=== PATIENT | female | born 1950 | race Caucasian/White ===

== ENCOUNTER → 2017-01-18 | Outpatient (CLI) | payer MEDICARE, BC | END | disposition home or self-care (01) | LOC: HKI 09:29 | PROVIDERS: ATTEND Orthopaedic Surgery | DX: M25.551 Pain in right hip (principal); M16.11 Unilateral primary osteoarthritis, right hip | CPT/HCPCS: G0463 ==

== ENCOUNTER 2017-01-26 06:04 | Inpatient (IN) | payer MEDICARE, BC ==
[~2017-01-26] VITALS: Ht 157.5 cm; Wt 87.0 kg
[2017-01-26] VITALS (33 sets, daily range): BP systolic 83–155; BP diastolic 53–97; PULSE 76–92; RESP 7–24; Ht 157.5 cm; Wt 87.0 kg
[~2017-01-26 06:04] MED LIST: CEFAZOLIN 2GM/50 ML (PMX) 50 ML X1 BEFORE INCISION IVPB ONE; CELECOXIB 400 MG PO X1 DOSE PO ONE; LACTATED RINGER'S 1,000 ML IV SCH; PREGABALIN 300 MG PO X1 PO ONE; TRANEXAMIC ACID 820 MG in SOD CHLORIDE 0.9% 91.8 ML IV ONE; oxyCODONE (CR) 10 MG TAB [oxyCONTIN] X1 DOSE PO ONE; traMADOL 50 MG TAB X 1 DOSE PO ONE
[2017-01-26] MEDS ORDERED: MIDAZOLAM 1 MG/ML 2 ML INJ ONE (06:54)
[2017-01-26] MEDS ORDERED: PROPOFOL 100 ML ONE (06:54)
[2017-01-26] MEDS ORDERED: FENTAnyl 50 MCG/ML VIAL ONE (06:54)
[2017-01-26] MEDS ORDERED: METOCLOPRAMIDE 10 MG INJ ONE (06:55)
[2017-01-26] MEDS ORDERED: ONDANSETRON 4 MG INJ ONE (06:55)
[2017-01-26] MEDS ORDERED: TRANEXAMIC ACID 820 MG in SOD CHLORIDE 0.9% 100 ML IVPB ONE (07:00)
[2017-01-26] MEDS ORDERED: EXPAREL NOTE (BUPIVICAINE LIPOSOMAL) XX SCH (07:00)
[2017-01-26] MEDS ORDERED: BUPIVACAINE LIPOSOME/PF 266 MG/20 ML VIAL INFIL ONE (07:00)
[2017-01-26] MEDS ORDERED: PAIN COCKTAIL-CEFUROXIME IRR ONE ×7 (07:00)
--- NOTE | 2017-01-26 07:07 | HPN ---
Date/Time of Note Date/Time of Note DATE: 01/26/17 TIME: 07:07 Interval H&P Admission Note Pt. seen H&P reviewed: No system changes No changes from H&P on 01/18/17 by LORI Patterson MD Jan 26, 2017 07:07
[2017-01-26] MEDS ORDERED: ESCI20TA38 PO (07:11)
[2017-01-26] MEDS ORDERED: AMLO-147 PO (07:11)
[2017-01-26] MEDS ORDERED: LEVO137T3 PO (07:11)
[2017-01-26] MEDS ORDERED: PRAV20TA63 PO (07:11)
[2017-01-26] MEDS ORDERED: FENO200 PO (07:11)
[2017-01-26] MEDS ORDERED: ASPI-664 PO (07:11)
[2017-01-26] MEDS ORDERED: BETA1TAB12 PO (07:14)
[2017-01-26] MEDS ORDERED: CHOL100062 PO (07:14)
[2017-01-26] MEDS ORDERED: UBID50TA PO (07:14)
[2017-01-26] MEDS ORDERED: CALC-68 PO (07:14)
[2017-01-26] MEDS ORDERED: DEXAMETHASONE 4 MG/ML 1 ML INJ ONE (07:17)
[2017-01-26] MEDS ORDERED: CEFAZOLIN 1 GM INJ ONE (07:27)
[2017-01-26] MEDS ORDERED: EPHEDrine SULFATE 50 MG/5 ML SYG ONE (07:48)
[2017-01-26] MEDS ORDERED: SODIUM CL BACTERIOSTATIC 30 ML INJ ONE (07:55)
[2017-01-26] MEDS ORDERED: VANCOMYCIN 1 GM INJ ONE (07:56)
[2017-01-26] MEDS ORDERED: POLYMYXIN B 500000 UNIT INJ ONE (07:56)
[2017-01-26] MEDS ORDERED: ONDANSETRON 4 MG INJ IV PRN ×2 (08:00→14:00)
[2017-01-26] MEDS ORDERED: LABETALOL HCL 20MG INJ IV PRN (08:00)
[2017-01-26] MEDS ORDERED: METOCLOPRAMIDE 10 MG INJ IV PRN (08:00)
[2017-01-26] MEDS ORDERED: MEPERIDINE 25 MG INJ IV PRN (08:00)
[2017-01-26] MEDS ORDERED: hydrALAzine 20 MG INJ IV PRN (08:00)
[2017-01-26] MEDS ORDERED: DIPHENHYDRAMINE 50 MG INJ IV PRN (08:00)
[2017-01-26] MEDS ORDERED: HYDROmorphONE (0.2 MG/ML) 10ML SYG IV PRN ×3 (08:00)
[2017-01-26] MEDS ORDERED: BACITRACIN 50000 UNITS INJ IRR ONE (08:18)
[2017-01-26] MEDS ORDERED: PROPOFOL 20 ML ONE (08:22)
[2017-01-26] MEDS ORDERED: BACITRACIN/POLYMYXIN 28.35 GM OINT TOP ONE (09:24)
[2017-01-26] MEDS: LACTATED RINGER'S 1,000 ML IV SCH ×3 (09:59→23:52)
[2017-01-26] MEDS ORDERED: BISACODYL 10 MG SUPP PR PRN (10:00)
[2017-01-26] MEDS ORDERED: NA PHOSPHATE/BIPHOS 133 ML ENEMA PR PRN (10:00)
[2017-01-26] MEDS ORDERED: ASPIRIN (EC) 325 MG TAB PO ONE (10:00)
[2017-01-26] MEDS ORDERED: NACL 0.9% 3 ML SYG IV SCH (10:00)
[2017-01-26] MEDS ORDERED: MAGNESIUM HYDROXIDE 30ML CUP PO PRN (10:00)
--- NOTE | 2017-01-26 10:12 | PN ---
Date/Time of Note Date/Time of Note DATE: 01/26/17 TIME: 10:11 Assessment/Plan Lines/Catheters IV Catheter Type (from Nrsg): Peripheral IV Assessment/Plan Assessment/Plan Stable in PACU, s/p right anterior OFELIA -continue Ancef until drains removed -pain meds as needed -ASA/SCDs for DVT prophylaxis -OOB with PT -monitor drain -check AM labs -d/c aldrich in AM XR of the right hip is pending at this time Subjective 24 Hr Interval Summary Stable in PACU. Moving all extremities. Denies signficant pain. Drowsy from anesthesia. Exam/Review of Systems Vital Signs Vitals Vital Signs Date Time Temp Pulse Resp B/P Pulse Ox O2 Delivery O2 Flow Rate FiO2 01/26/17 10:09 98.1 01/26/17 06:56 78 18 144/81 99 Room Air Intake and Output 01/25/17 01/25/17 01/26/17 15:00 23:00 07:00 Intake Total 0 ml Balance 0 ml Exam Free Text/Dictation Dressing dry Incision clean, dry, and intact without redness or drainage 5/5 Quadriceps, Tibialis Anterior, EHL, Gastroc, Soleus, Peroneals Normal sensation Palpable DT/PT, CR <2 sec No distal edema JAMAL LOPEZ PA-C Jan 26, 2017 10:12
--- NOTE | 2017-01-26 10:18 | OPR ---
Date/Time of Note Date/Time of Note DATE: 01/26/17 TIME: 10:17 Operative Report Free Text/Dictation Dictation # [id number] Procedure Date: Jan 26, 2017 Preoperative Diagnosis Right Hip OA Postoperative Diagnosis Same Operation Performed Right Anterior OFELIA Surgeon: LORI NYE MD executive personal assistant: JAMAL LOPEZ PA-C Anesthesia: general, spinal Anesthesiologist: AYANNA MOSHER MD Estimated Blood Loss: 250 - 300 ml's Specimens Femoral Head Tubes/Drains Hemovac x 1 Complications: None Pt Condition Post Procedure: stable Disposition: PACU LORI NYE MD Jan 26, 2017 10:18
--- NOTE | 2017-01-26 10:32 | OPR ---
DATE OF OPERATION: 01/26/2017 PREOPERATIVE DIAGNOSIS: Right hip osteoarthritis. POSTOPERATIVE DIAGNOSIS: Right hip osteoarthritis. OPERATION PERFORMED: Right anterior total hip arthroplasty. SURGEON: Lori Thurston MD ASSISTANT COUNTY ATTORNEY: TENZIN Hurley COMPONENTS USED: DePuy size 46 mm Gription Debord cup, 48/28 neutral AltrX polyethylene liner, size 3 standard Actis standard stem, 28 +1.5 ceramic head. ANESTHESIA: Spinal plus general endotracheal intubation, plus periarticular injection. ESTIMATED BLOOD LOSS: 300 mL. INTRAVENOUS FLUIDS: 2100 mL of crystalloid. SPECIMENS: Femoral head. DRAINS: Hemovac x1. COMPLICATIONS: None. DISPOSITION: The patient tolerated the procedure well and was taken to the recovery room in stable condition. INDICATIONS: The patient is a 66-year-old woman who has had progressive worsening pain in the right hip with radiographic evidence of severe osteoarthritis. She has failed nonsurgical means of treatment to control her pain including activity modifications, pain medications and ambulatory assist devices. Despite these measures, she has had worsening pain and I felt she would benefit from a total hip arthroplasty through an anterior approach. The risks, benefits, and alternatives of the procedure were explained in detail to the patient. I explained the risks of the surgery to include, but not be limited to: bleeding and possible need for blood transfusion; infection; pain; stiffness; neurovascular injury with possible numbness, weakness, and/or paralysis anywhere from the hip down to the toes; fracture; instability; dislocation; leg length inequality; wear and/or loosening of the prosthesis and possible need for future revision; blood clots; pulmonary embolism; and anesthetic complications such as heart attack, stroke, GI bleed, pneumonia, and/ or . Ample time was allowed for the patient to ask questions, all of which were addressed and answered. The patient understood the risks involved and wished to proceed. Informed consent was signed prior to the procedure. PROCEDURE: The patient's right hip was initialed with a marking pen in the preoperative area to identify the correct operative site. The patient was brought to the operating room and transferred from the [facility] to the [facility] where a spinal anesthetic was administered. The patient was then anesthetized and intubated. A Clarke catheter was placed. Both feet were placed into well padded boots which were then placed into the leg holders of the traction booms. A timeout was performed to confirm that the right side was the correct operative site. The patient was given 2 g of intravenous Ancef within one hour prior to the procedure. The operative hip was prepped and draped in the usual sterile fashion. A 10 cm oblique incision was made over the anterior aspect of the hip and carried down through subcutaneous tissue and fat with sharp dissection. The tensor fascia zari was incised along the length of the wound. The tensor fascia muscle was retracted laterally and the sartorius medially. The anterior circumflex vessels were identified and tied off with 2-0 silk suture and coagulated with the [employer] actuarial intern. The rectus femoris was elevated off the anterior capsule and an anterior capsulectomy performed. A femoral neck osteotomy was made and the head removed from the acetabulum. The acetabulum was denuded of cartilage circumferentially, as was the femoral head. Retractors were placed around the acetabulum. The remnants of the labrum and ligamentum teres were excised. I reamed the acetabulum to the medial wall and then went into an anatomic position and increased the reamer size in 2 mm increments until I got a good bite and was down to bleeding subchondral bone. The Debord cup was opened and impacted into the acetabulum and sat flush circumferentially, getting a good bite. C-arm imaging showed it had about 40 to 45 degrees of abduction and 20 degrees of anteversion. The real liner was opened and impacted into the acetabulum and sat flush circumferentially. Attention was turned towards the femur. The operative leg was carefully lowered to the floor with the leg adducted. The foot was then externally rotated to approximately 110 degrees. A posteromedial release was performed to optimize exposure. The femoral hook was placed underneath the proximal femur and the hydraulic lift was then used to elevate the femur up out of the wound. The cookrema cutter osteotome was used to remove the remaining overhanging greater trochanter. The femur was then broached, going up in one size increments until it sat flush with the neck cut and a stable fit was achieved. The trial neck and head were assembled and reduced into the acetabulum. Fluoroscopic imaging showed the components to be in good position and the leg lengths and offsets to be equal. At this point, the trial was dislocated and the trial broach removed. The canal was irrigated and dried. The real stem was opened and impacted into the femur. The trunnion was irrigated and dried, and the real femoral head was impacted onto the trunnion, and reduced into the acetabulum. The soft tissues were infiltrated with a mixture of 150 mg of 0.5% bupivacaine, 8 mg of Duramorph, 300 mcg of epinephrine, 30 mg of Toradol, 100 mcg of clonidine, 750 mg of cefuroxime and 86 mL of normal saline, followed by an injection of 266 mg of liposomal bupivacaine. At this point the hip was irrigated with a mixture of Betadine/saline and then antibiotic saline with pulsatile lavage. A Hemovac drain was placed in the deep portion of the wound and brought out the anterolateral thigh. There was good hemostasis. The tensor fascia zari was repaired with a running #1 Vicryl. The deep fat layer was irrigated and closed with 2-0 Stratafix and the subcutaneous layer closed with 3 -0 Vicryl and the skin was closed with era and then sealed with Dermabond. The drain was secured with 3-0 nylon. The sponge and needle counts were correct at the end of the case. The wound was covered with an occlusive dressing. The patient was awakened, extubated, and taken to the recovery room in stable condition. Dictated By: LORI BARRETT/KAMILA Conf#: [id number] DID#: [id number] MTDD
[2017-01-26 10:35] LABS: HEMOGLOBIN 12.2 g/dl (12.0-16.0)
[2017-01-26 10:47] LABS: POTASSIUM 4.3 mmol/L (3.5-5.1)
[2017-01-26 10:50] LABS: CALCIUM 8.7 mg/dl (8.4-10.2); CREATININE 0.71 mg/dl (0.44-1.00)
--- NOTE | 2017-01-26 11:39 | RADRPT ---
PROCEDURE: X-ray fluoroscopy guidance CLINICAL INDICATION: Right hip replacement, fluoroscopic guidance. TECHNIQUE: Fluoroscopic guidance was utilized for an intraoperative procedure. COMPARISON: None available FINDINGS: Fluoroscopic guidance was utilized for and intraoperative procedure. 0.4 minutes of fluoroscopy time was utilized for the procedure. 14 x-ray images were obtained during the procedure in progress. Fin al images demonstrate prosthetic components and appropriate position and alignment. IMPRESSION: X-ray fluoroscopic guidance utilized for intraoperative procedure. Right hip replacement prosthetic components in appropriate position and alignment. Please see procedure note for details. RPTAT: AA .Se Tamayo MD, MD Date Time Electronically viewed and signed by .Se Tamayo MD, MD on 01/26/2017 11:39 .P/
--- NOTE | 2017-01-26 11:39 | CONS ---
DATE OF ADMISSION: 01/26/2017 DATE OF CONSULTATION: 01/26/2017 POSTOPERATIVE MEDICAL CONSULTATIVE NOTE Dear Dr. Thurston, Thank you very much for allowing me to evaluate the above patient who just underwent right total kne e arthroplasty. HISTORICAL EVENTS: As you well know, this patient has had progressive disabling pain involving the right knee and elected to proceed with surgery today. In recovery, she is comfortable without cough , wheezing, shortness of breath, nausea, vomiting, abdominal or chest pain. PAST MEDICAL HISTORY: Includes: 1. Hyperlipidemia. 2. Hypothyroidism. 3. Vitamin D deficiency. 4. Mild osteopenia. 5. Hypertension, 6. Tubal ligation 1978. 7. Thyroidectomy 2000. 8. Left breast lumpectomy in 1987. 9. Tonsillectomy. 10. Arthroscopic shoulder surgery 2011. FAMILY HISTORY: Positive for coronary artery disease, hyperlipidemia. SOCIAL HISTORY: Nonsmoker, does drink wine occasionally. MEDICATIONS: Prior to admission: 1. Caltrate with D b.i.d. 2. Ecotrin 81 mg per day. 3. Ocuvite 1 per day. 4. Escitalopram 20 mg per day. 4. Pravastatin 20 mg per day. 5. Fenofibrate 160 mg per day. 6. Levothyroxine 137 mcg per day. ALLERGIES OR INTOLERANCES: Include: 1. Lipitor 2. Simvastatin. PHYSICAL EXAMINATION: GENERAL: Somnolent female in no acute distress. VITAL SIGNS: BP 122/80, pulse 70, respirations are 20, she was afebrile. EYES: Extraocular muscles were full. NOSE, MOUTH, AND THROAT: Normal. NECK: Supple. There was no jugular venous distention, thyroid enlargement or adenopathy. Carotids 2+. LUNGS: Clear. HEART: Rhythm regular. ABDOMEN: Nontender. Liver and spleen were not palpable. No masses or tenderness were noted. EXTREMITIES: No edema. IMPRESSION: 1. Stable postoperative right total hip replacement. 2. History of hypertension. Will continue antihypertensive therapy. 3. Hyperlipidemia, statin will be continued. PLAN: Will follow daily with signs and symptoms of thromboembolic disease despite appropriate DVT p rophylaxis. Dictated By: OMEGA LOPEZ/KAMILA Conf#: [id number] DID#: [id number]
[2017-01-26 11:45] LABS: ADD UMIC YES; URINE BILIRUBIN (Dip) NEGATIVE (NEGATIVE); URINE BLOOD (Dip) 1+ (NEGATIVE); URINE COLOR YELLOW (YELLOW); URINE GLUCOSE (Dip) NEGATIVE (NEGATIVE); URINE KETONES (Dip) NEGATIVE (NEGATIVE); URINE LEUKOCYTE ESTERASE (Dip) NEGATIVE (NEGATIVE); URINE NITRITE (Dip) NEGATIVE (NEGATIVE); URINE TOTAL PROTEIN (Dip) TRACE (NEGATIVE); URINE UROBILINOGEN (Dip) 0.2 E.U./dL (0.1-1.0)
[2017-01-26 12:00] LABS: SQUAMOUS EPITHELIAL CELL,UR FEW
[2017-01-26] MEDS: traMADol 50 MG TAB PO SCH ×3 (12:00→23:48)
[2017-01-26] MEDS: ACETAMINOPHEN 1000MG/100ML IV 100 ML IVPB SCH ×3 (12:10→23:48)
[2017-01-26] MEDS ORDERED: TRANEXAMIC ACID 870 MG in SOD CHLORIDE 0.9% 100 ML IVPB ONE ×2 (13:00→16:00)
--- NOTE | 2017-01-26 13:09 | RADRPT ---
PROCEDURE: Pelvis x-ray CLINICAL INDICATION: Pain TECHNIQUE: Single AP view of the pelvis performed. COMPARISON: None FINDINGS: Normal mineralization, architecture and alignment. No fracture or osseous lesion identified. There are mild degenerative changes of the left hip joint including joint space narrowing and small osteophytes. A right hip prosthesis is noted in near anatomic alignment without evidence of hardware loosening. Likely postoperative changes are noted including overlying skin era, surrounding subcutaneous em physema, and a surgical drain. A Clarke catheter is noted. RPTAT: AA IMPRESSION: Right hip prosthesis in near anatomic alignment with likely postoperative changes, as above. Mild degenerative changes of the left hip joint. Physician Yao Date Time Electronically viewed and signed by Physician Yao on 01/26/2017 13:09 /
[2017-01-26] MEDS ORDERED: oxyCODONE 5 MG TAB PO PRN (14:00)
[2017-01-26] MEDS ORDERED: HYDROmorphONE 1 MG/ML SYG IV PRN (14:00)
[2017-01-26] MEDS ORDERED: DIPHENHYDRAMINE 25 MG CAP PO PRN (14:00)
[2017-01-26] MEDS ORDERED: BACITRACIN 50000 UNITS INJ ONE (15:02)
[2017-01-26] MEDS: CEFAZOLIN 2 GM/50 ML (PMX) 50 ML IVPB SCH ×2 (16:16→21:28)
[2017-01-26] MEDS: PANTOPRAZOLE (EC) 40 MG TAB PO SCH (18:25)
[2017-01-26] MEDS ORDERED: ATORVASTATIN 10 MG TAB PO SCH (21:00)
[2017-01-26] MEDS: PREGABALIN 50 MG CAP PO SCH (21:28)
[2017-01-26] MEDS: DOCUSATE SODIUM 100 MG CAP PO SCH (21:28)
[2017-01-27] VITALS: BP 120/64; RESP 18
[2017-01-27 05:28] VITALS: BP 124/71; PULSE 68; RESP 18
[2017-01-27] MEDS: ACETAMINOPHEN 1000MG/100ML IV 100 ML IVPB SCH (05:30)
[2017-01-27] MEDS: PANTOPRAZOLE (EC) 40 MG TAB PO SCH ×2 (05:30→18:25)
[2017-01-27] MEDS: traMADol 50 MG TAB PO SCH (05:31)
[2017-01-27 05:44] LABS: HEMATOCRIT 31.9 % (37.0-47.0); HEMOGLOBIN 10.2 g/dl (12.0-16.0)
[2017-01-27] MEDS: CEFAZOLIN 2 GM/50 ML (PMX) 50 ML IVPB SCH (05:59)
[2017-01-27 06:07] LABS: POTASSIUM 5.1 mmol/L (3.5-5.1)
[2017-01-27 06:09] LABS: CREATININE 0.95 mg/dl (0.44-1.00)
[2017-01-27 06:10] LABS: CALCIUM 8.3 mg/dl (8.4-10.2)
[2017-01-27 06:13] LABS: ADD UMIC YES; URINE BILIRUBIN (Dip) NEGATIVE (NEGATIVE); URINE BLOOD (Dip) 2+ (NEGATIVE); URINE COLOR LT. YELLOW (YELLOW); URINE GLUCOSE (Dip) NEGATIVE (NEGATIVE); URINE KETONES (Dip) NEGATIVE (NEGATIVE); URINE LEUKOCYTE ESTERASE (Dip) NEGATIVE (NEGATIVE); URINE NITRITE (Dip) NEGATIVE (NEGATIVE); URINE TOTAL PROTEIN (Dip) NEGATIVE (NEGATIVE); URINE UROBILINOGEN (Dip) 0.2 E.U./dL (0.1-1.0)
[2017-01-27 06:34] LABS: BACTERIA,URINE RARE; SQUAMOUS EPITHELIAL CELL,UR FEW; URINE RBCS 25-50 /HPF (0)
[2017-01-27] MEDS: LEVOTHYROXINE 137 MCG TAB PO SCH (06:38)
[2017-01-27 07:25] VITALS: BP 112/58; RESP 20
[2017-01-27] MEDS: ASPIRIN (EC) 325 MG TAB PO SCH ×2 (08:41→20:32)
[2017-01-27] MEDS: ESCITALOPRAM 10 MG TAB PO SCH (08:41)
[2017-01-27] MEDS: CELECOXIB 200 MG CAP PO SCH (08:41)
[2017-01-27] MEDS: DOCUSATE SODIUM 100 MG CAP PO SCH ×2 (08:41→20:32)
[2017-01-27] MEDS: PREGABALIN 50 MG CAP PO SCH (08:42)
[2017-01-27] MEDS: LACTATED RINGER'S 1,000 ML IV SCH ×2 (08:43→17:59)
[2017-01-27] MEDS: FENOFIBRATE 145 MG TAB PO SCH (08:43)
[2017-01-27] MEDS: AMLODIPINE 10 MG TAB PO SCH (08:44)
--- NOTE | 2017-01-27 08:59 | PN ---
Date/Time of Note Date/Time of Note DATE: 01/27/17 TIME: 08:58 Assessment/Plan Lines/Catheters IV Catheter Type (from Nrsg): Peripheral IV Clarke in Place (from Nrsg): Yes Assessment/Plan Assessment/Plan Stable POD #1, s/p right anterior OFELIA -d/c abx -drain removed -ASA/SCDs -pain meds as needed -OOB with PT -check AM labs -d/c planning. Will plan to go home upon discharge Subjective 24 Hr Interval Summary No acute overnight events. Denies pain. Did not start PT yesterday. VSS, afebrile. Would like to go home upon discharge. Exam/Review of Systems Vital Signs Vitals Vital Signs Date Time Temp Pulse Resp B/P Pulse Ox O2 Delivery O2 Flow Rate FiO2 01/27/17 07:25 97.5 76 20 112/58 97 01/27/17 05:28 Nasal Cannula 2.0 Intake and Output 01/26/17 01/26/17 01/27/17 15:00 23:00 07:00 Intake Total 2308.2 ml 100 ml 1950 ml Output Total 350 ml 220 ml 300 ml Balance 1958.2 ml -120 ml 1650 ml Exam Free Text/Dictation Hemovac: 20cc Dressing dry Incision clean, dry, and intact without redness or drainage 5/5 Quadriceps, Tibialis Anterior, EHL, Gastroc, Soleus, Peroneals Normal sensation Palpable DT/PT, CR <2 sec No distal edema Results Result Diagram: 01/27/17 0500 01/27/17 0500 JAMAL LOPEZ PA-C Jan 27, 2017 08:59
[2017-01-27] MEDS ORDERED: traMADol 50 MG TAB PO PRN (09:00)
--- NOTE | 2017-01-27 10:45 | CONS ---
Date/Time of Note Date/Time of Note DATE: 01/27/17 TIME: 10:43 Assessment/Plan Assessment/Plan Additional Assessment/Plan 1. Stable postoperative right total hip replacement. 2. History of hypertension. Will continue antihypertensive therapy. 3. Hyperlipidemia, statin will be continued. 4. Orthostatic dizziness, will ck postural BP's Consultation Date/Type/Reason Admit Date/Time Jan 26, 2017 at 06:04 Initial Consult Date Detailed Summary Respiratory: No shortness of breath Cardiovascular: lightheadedness, palpitations (she c/o dizziness when walking, mild n and v x1, she is now comfortable), No chest pain Gastrointestinal: no complaints Genitourinary: no complaints Musculoskeletal: bone/joint pain (mild right hip pain) Exam/Review of Systems Vital Signs Vitals Vital Signs Date Time Temp Pulse Resp B/P Pulse Ox O2 Delivery O2 Flow Rate FiO2 01/27/17 07:25 97.5 76 20 112/58 97 01/27/17 05:28 Nasal Cannula 2.0 Intake and Output 01/26/17 01/26/17 01/27/17 15:00 23:00 07:00 Intake Total 2308.2 ml 100 ml 1950 ml Output Total 350 ml 220 ml 300 ml Balance 1958.2 ml -120 ml 1650 ml Exam Neck: No jvd Respiratory: clear to auscultation Cardiovascular: regular rate and rhythm Gastrointestinal: soft Extremities: No edema (and no calf tend bilat) Results Result Diagram: 01/27/17 0500 01/27/17 0500 Results 24 hrs Laboratory Tests Test 01/27/17 04:30 01/27/17 05:00 Urine Color LT. YELLOW Urine Clarity SLIGHTLY CLOUDY Urine pH 5.0 Urine Specific [place] 1.025 Urine Ketones NEGATIVE Urine Nitrite NEGATIVE Urine Bilirubin NEGATIVE Urine Urobilinogen 0.2 E.U./dL Urine Leukocyte Esterase NEGATIVE Urine Microscopic RBC 25-50 Urine Microscopic WBC 0-2 Urine Squamous Epithelial Cells FEW Urine Bacteria RARE Urine Hemoglobin 2+ H Urine Glucose NEGATIVE Urine Total Protein NEGATIVE Hemoglobin 10.2 L Hematocrit 31.9 L Sodium Level 134 L Potassium Level 5.1 Chloride Level 100 Carbon Dioxide Level 28 Anion Gap 11 Blood Urea Nitrogen 34 #H Creatinine 0.95 Glucose Level 131 Calcium Level 8.3 L Medications Medications Current Medications Miscellaneous Information 1 ea NOTE XX ; Start 01/26/17 at 07:00; Stop 01/30/17 at 06:59 Amlodipine Besylate (Norvasc) 10 mg DAILY PO ; Start 01/27/17 at 09:00 Escitalopram Oxalate (Lexapro) 20 mg DAILY PO Last administered on 01/27/17 08 :41; Admin Dose 20 MG; Start 01/27/17 at 09:00 Fenofibrate 145 mg 145 mg DAILY PO Last administered on 01/27/17 08:43; Admin Dose 145 MG; Start 01/27/17 at 09:00 Lactated Ringer's (Lr) 1,000 ml @ 125 mls/hr Q8H IV Last administered on 08:43; Admin Dose 125 MLS/HR; Start 01/26/17 at 09:59 Celecoxib 200 mg 200 mg DAILY PO Last administered on 01/27/17 08:41; Admin Dose 200 MG; Start 01/27/17 at 09:00 Acetaminophen (Ofirmev 1000mg/ 100ml Iv) 100 ml @ 400 mls/hr Q6 IVPB Last administered on 01/27/17 05:30; Admin Dose 400 MLS/HR; Start 01/26/17 at 12:00 ; Stop 01/27/17 at 11:59 Oxycodone HCl (Roxicodone) 5 mg Q4H PRN PO PAIN LEVEL 1-3; Start 01/26/17 at 14 :00 Oxycodone HCl (Roxicodone) 10 mg Q4H PRN PO PAIN LEVEL 4-7; Start 01/26/17 at 14:00 Hydromorphone HCl (Dilaudid) 1 mg Q3H PRN IV PAIN LEVEL 8-10; Start 01/26/17 at 14:00 Ondansetron HCl (Zofran Inj) 4 mg Q6H PRN IV NAUSEA AND/OR VOMITING Last administered on 01/27/17 08:43; Admin Dose 4 MG; Start 01/26/17 at 14:00 Bisacodyl (Dulcolax Supp) 10 mg Q12H PRN [place] CONSTIPATION; Start 01/26/17 at 10: 00 Magnesium Hydroxide (Milk Of Mag) 30 ml BID PRN PO CONSTIPATION; Start at 10:00 Sodium Biphosphate/ Sodium Phosphate (Fleet Enema) 133 ml DAILY PRN [place] CONSTIPATION; Start 01/26/17 at 10:00 Docusate Sodium (Colace) 100 mg BID PO Last administered on 01/27/17 08:41; Admin Dose 100 MG; Start 01/26/17 at 21:00 Diphenhydramine HCl (Benadryl) 25 mg Q6H PRN PO PRURITUS; Start 01/26/17 at 14: 00 Aspirin (Ecotrin) 325 mg BID PO Last administered on 01/27/17 08:41; Admin Dose 325 MG; Start 01/27/17 at 09:00 Pantoprazole (Protonix Tab) 40 mg BID@06,18 PO Last administered on 01/27/17 05:30; Admin Dose 40 MG; Start 01/26/17 at 18:00 Tramadol HCl (Ultram) 50 mg Q4H PRN PO PAIN; Start 01/27/17 at 09:00 OMEGA MONTERROSO MD Jan 27, 2017 10:45
--- NOTE | 2017-01-27 16:11 | PDOCDIS ---
Discharge Instructions DIAGNOSIS Discharge Diagnosis: s/p right anterior OFELIA CONDITION Patient Condition: Good HOME CARE INSTRUCTIONS: Diet Instructions: RegularSpecial Diet: CLEAR LIQUID ACTIVITY: Activity Restrictions: Slowly Increase Activity Rest between Activity Avoid heavy lifting Do not operate Machinery Do not operate Power Tool Avoid Heavy Housework Keep Limb Elevated Bathing Restrictions: Shower FOLLOW UP/APPOINTMENTS Appointments follow up in the office on 02/06/17 OTHER ORDERS: Other Orders: S/P Anterior OFELIA Physical Therapy: Three times per week at home x 2 weeks Daily in Rehab/SNF WB STATUS: WBAT Strengthening exercises for both upper and un-operated lower extremities. 1. Gait training with front wheeled walker 2. Wide base gait, no pivot turns. 3. Abductor strengthening. 4. Quadriceps and hamstring strengthening. 5. May switch to cane in contra lateral hand 6 weeks after surgery. 6. Physical Therapy can open case if nursing is not available. 7. Ice Packs while at rest to surgical wound for 20 minutes, 3 times/day. 8. Patient requires mobile SCDs to reduce risk of developing DVT following OFELIA. Patient will use the mobile SCDs for 30 days postoperatively. Hip Precautions: No posterior hip precautions. Bathing assistance by home health aide twice weekly if Medicare patient. Occupational Therapy: Evaluation for assistive devices and ADL training. Wound Care: Keep incision dry & covered with Tegaderm until first visit with Dr. Thurston Anticoagulation Orders: Enteric Coated Aspirin 325 mg po bid x 6 weeks from date of surgery Follow-up:Call for an appointment with Dr. Thurston in 1 week after discharged from hospital at DME Orders: LINDA, 3-in-1 Commode, Mobile SCDs JAMAL LOPEZ PA-C Jan 27, 2017 16:11
[2017-01-27] MEDS ORDERED: PANT40TA4 PO (16:13)
[2017-01-27] MEDS ORDERED: ASPI325T32 PO (16:13)
[2017-01-27] MEDS ORDERED: TRAM50TA2 PO (16:13)
[2017-01-27] MEDS ORDERED: HYDR-906 PO (16:13)
[2017-01-27] MEDS ORDERED: ACETAMINOPHEN 325 MG TAB PO PRN (16:30)
--- NOTE | 2017-01-27 17:05 | PN ---
Date/Time of Note Date/Time of Note DATE: 01/27/17 TIME: 17:03 Assessment/Plan VTE Prophylaxis VTE Prophylaxis Intervention: SCD's Lines/Catheters IV Catheter Type (from Nrsg): Peripheral IV Urinary Cath still in place: No Subjective 24 Hr Interval Summary Free Text/Dictation Anesthesia Not: A 66 year female s/p right hip arthroplasty under GA and spinal POD $ 1 doing fine, no N/V, headache, itching. pain is controllled, ambulated today. V/S stable. Exam/Review of Systems Vital Signs Vitals Vital Signs Date Time Temp Pulse Resp B/P Pulse Ox O2 Delivery O2 Flow Rate FiO2 01/27/17 07:25 97.5 76 20 112/58 97 01/27/17 05:28 Nasal Cannula 2.0 Intake and Output 01/26/17 01/26/17 01/27/17 15:00 23:00 07:00 Intake Total 2308.2 ml 100 ml 1950 ml Output Total 350 ml 220 ml 300 ml Balance 1958.2 ml -120 ml 1650 ml Results Result Diagram: 01/27/17 0500 01/27/17 1410 Results 24 hrs Laboratory Tests Test 01/27/17 04:30 01/27/17 05:00 01/27/17 14:10 Urine Color LT. YELLOW Urine Clarity SLIGHTLY CLOUDY Urine pH 5.0 Urine Specific [place] 1.025 Urine Ketones NEGATIVE Urine Nitrite NEGATIVE Urine Bilirubin NEGATIVE Urine Urobilinogen 0.2 E.U./dL Urine Leukocyte Esterase NEGATIVE Urine Microscopic RBC 25-50 Urine Microscopic WBC 0-2 Urine Squamous Epithelial Cells FEW Urine Bacteria RARE Urine Hemoglobin 2+ H Urine Glucose NEGATIVE Urine Total Protein NEGATIVE Hemoglobin 10.2 L Hematocrit 31.9 L Sodium Level 134 L Potassium Level 5.1 4.2 Chloride Level 100 Carbon Dioxide Level 28 Anion Gap 11 Blood Urea Nitrogen 34 #H Creatinine 0.95 Glucose Level 131 Calcium Level 8.3 L Medications Medications Current Medications Miscellaneous Information 1 ea NOTE XX ; Start 01/26/17 at 07:00; Stop 01/30/17 at 06:59 Amlodipine Besylate (Norvasc) 10 mg DAILY PO ; Start 01/27/17 at 09:00 Escitalopram Oxalate (Lexapro) 20 mg DAILY PO Last administered on 01/27/17t 08 :41; Admin Dose 20 MG; Start 01/27/17 at 09:00 Fenofibrate 145 mg 145 mg DAILY PO Last administered on 01/27/17 08:43; Admin Dose 145 MG; Start 01/27/17 at 09:00 Lactated Ringer's (Lr) 1,000 ml @ 125 mls/hr Q8H IV Last administered on 08:43; Admin Dose 125 MLS/HR; Start 01/26/17 at 09:59 Celecoxib (Celebrex) 200 mg DAILY PO Last administered on 01/27/17 08:41; Admin Dose 200 MG; Start 01/27/17 at 09:00 Oxycodone HCl (Roxicodone) 5 mg Q4H PRN PO PAIN LEVEL 1-3; Start 01/26/17 at 14 :00 Oxycodone HCl (Roxicodone) 10 mg Q4H PRN PO PAIN LEVEL 4-7; Start 01/26/17 at 14:00 Hydromorphone HCl (Dilaudid) 1 mg Q3H PRN IV PAIN LEVEL 8-10; Start 01/26/17 at 14:00 Ondansetron HCl (Zofran Inj) 4 mg Q6H PRN IV NAUSEA AND/OR VOMITING Last administered on 01/27/17 08:43; Admin Dose 4 MG; Start 01/26/17 at 14:00 Bisacodyl (Dulcolax Supp) 10 mg Q12H PRN [place] CONSTIPATION; Start 01/26/17 at 10: 00 Magnesium Hydroxide (Milk Of Mag) 30 ml BID PRN PO CONSTIPATION; Start at 10:00 Sodium Biphosphate/ Sodium Phosphate (Fleet Enema) 133 ml DAILY PRN [place] CONSTIPATION; Start 01/26/17 at 10:00 Docusate Sodium (Colace) 100 mg BID PO Last administered on 01/27/17 08:41; Admin Dose 100 MG; Start 01/26/17 at 21:00 Diphenhydramine HCl (Benadryl) 25 mg Q6H PRN PO PRURITUS; Start 01/26/17 at 14: 00 Aspirin (Ecotrin) 325 mg BID PO Last administered on 01/27/17 08:41; Admin Dose 325 MG; Start 01/27/17 at 09:00 Pantoprazole (Protonix Tab) 40 mg BID@06,18 PO Last administered on 01/27/17 05:30; Admin Dose 40 MG; Start 01/26/17 at 18:00 Tramadol HCl (Ultram) 50 mg Q4H PRN PO PAIN; Start 01/27/17 at 09:00 Acetaminophen (Tylenol Tab) 650 mg Q4H PRN PO PAIN AND OR ELEVATED TEMP Last administered on 01/27/17 17:01; Admin Dose 650 MG; Start 01/27/17 at 16:30 AYANNA MOSHER MD Jan 27, 2017 17:05
[2017-01-27 19:00] VITALS: BP 127/58; RESP 18
[2017-01-28] MEDS: oxyCODONE 5 MG TAB PO PRN ×4 (01:47→22:47)
[2017-01-28] MEDS: LACTATED RINGER'S 1,000 ML IV SCH ×3 (01:59→17:59)
[2017-01-28 05:19] LABS: HEMATOCRIT 28.9 % (37.0-47.0); HEMOGLOBIN 9.3 g/dl (12.0-16.0)
[2017-01-28 05:38] LABS: POTASSIUM 4.2 mmol/L (3.5-5.1)
[2017-01-28 05:41] LABS: CREATININE 0.7 mg/dl (0.44-1.00)
[2017-01-28 05:42] LABS: CALCIUM 8.3 mg/dl (8.4-10.2)
[2017-01-28] MEDS: LEVOTHYROXINE 137 MCG TAB PO SCH (06:15)
[2017-01-28] MEDS: PANTOPRAZOLE (EC) 40 MG TAB PO SCH ×2 (06:15→18:32)
[2017-01-28 07:51] VITALS: BP 120/66; RESP 15
[2017-01-28] MEDS: ESCITALOPRAM 10 MG TAB PO SCH (08:51)
[2017-01-28] MEDS: ASPIRIN (EC) 325 MG TAB PO SCH ×2 (08:51→20:53)
[2017-01-28] MEDS: DOCUSATE SODIUM 100 MG CAP PO SCH ×2 (08:51→20:53)
[2017-01-28] MEDS: CELECOXIB 200 MG CAP PO SCH (08:51)
[2017-01-28] MEDS: AMLODIPINE 10 MG TAB PO SCH (08:52)
[2017-01-28] MEDS: FENOFIBRATE 145 MG TAB PO SCH (08:53)
--- NOTE | 2017-01-28 10:00 | PN ---
Date/Time of Note Date/Time of Note DATE: 01/28/17 TIME: 09:59 Assessment/Plan Lines/Catheters IV Catheter Type (from Nrsg): Peripheral IV Clarke in Place (from Nrsg): No Assessment/Plan Assessment/Plan Stable POD #2, s/p right anterior OFELIA -pain meds as needed -ASA/SCDs for DVT prophylaxis -OOB with PT -dressing changed -check AM labs -d/c home in AM Subjective 24 Hr Interval Summary No acute overnight events. Having more pain last night and did not sleep well. Has not been taking pain medicine but finally took oxycodone approximately 30 min ago. Progressing with PT. Would like to go home tomorrow. Exam/Review of Systems Vital Signs Vitals Vital Signs Date Time Temp Pulse Resp B/P Pulse Ox O2 Delivery O2 Flow Rate FiO2 01/28/17 07:51 98.1 76 15 120/66 99 01/27/17 05:28 Nasal Cannula 2.0 Intake and Output 01/27/17 01/27/17 01/28/17 15:00 23:00 07:00 Intake Total 2560 ml 400 ml Output Total 0 ml 300 ml 800 ml Balance 0 ml 2260 ml -400 ml Exam Free Text/Dictation Dressing dry Incision clean, dry, and intact without redness or drainage 5/5 Quadriceps, Tibialis Anterior, EHL, Gastroc, Soleus, Peroneals Normal sensation Palpable DT/PT, CR <2 sec No distal edema Results Result Diagram: 01/28/17 0425 01/28/17 0425 JAMAL LOPEZ PA-C Jan 28, 2017 10:00
--- NOTE | 2017-01-28 11:01 | CONS ---
Date/Time of Note Date/Time of Note DATE: 01/28/17 TIME: 11:00 Assessment/Plan Assessment/Plan Additional Assessment/Plan 1. Stable postoperative right total hip replacement. 2. History of hypertension, BP controlled 3. Hyperlipidemia, statin will be continued. 4. Orthostatic dizziness, has resolved Consultation Date/Type/Reason Admit Date/Time Jan 26, 2017 at 06:04 Detailed Summary Cardiovascular: No chest pain Gastrointestinal: no complaints Genitourinary: no complaints Musculoskeletal: bone/joint pain (mild right hip pain) Neurologic: No dizziness Exam/Review of Systems Vital Signs Vitals Vital Signs Date Time Temp Pulse Resp B/P Pulse Ox O2 Delivery O2 Flow Rate FiO2 01/28/17 07:51 98.1 76 15 120/66 99 01/27/17 05:28 Nasal Cannula 2.0 Intake and Output 01/27/17 01/27/17 01/28/17 15:00 23:00 07:00 Intake Total 2560 ml 400 ml Output Total 0 ml 300 ml 800 ml Balance 0 ml 2260 ml -400 ml Exam Neck: No jvd Respiratory: clear to auscultation Cardiovascular: regular rate and rhythm Gastrointestinal: soft Extremities: No edema (and no calf tend) Results Result Diagram: 01/28/17 0425 01/28/17 0425 Results 24 hrs Laboratory Tests Test 01/27/17 14:10 01/28/17 04:25 Potassium Level 4.2 4.2 Hemoglobin 9.3 L Hematocrit 28.9 L Sodium Level 137 Chloride Level 102 Carbon Dioxide Level 30 Anion Gap 9 Blood Urea Nitrogen 19 # Creatinine 0.70 Glucose Level 109 Calcium Level 8.3 L Medications Medications Current Medications Miscellaneous Information 1 ea NOTE XX ; Start 01/26/17 at 07:00; Stop 01/30/17 at 06:59 Amlodipine Besylate (Norvasc) 10 mg DAILY PO Last administered on 01/28/17 08: 52; Admin Dose 10 MG; Start 01/27/17 at 09:00 Escitalopram Oxalate (Lexapro) 20 mg DAILY PO Last administered on 01/28/17 08: 51; Admin Dose 20 MG; Start 01/27/17 at 09:00 Fenofibrate 145 mg 145 mg DAILY PO Last administered on 01/28/17 08:53; Admin Dose 145 MG; Start 01/27/17 at 09:00 Lactated Ringer's (Lr) 1,000 ml @ 125 mls/hr Q8H IV Last administered on 08:43; Admin Dose 125 MLS/HR; Start 01/26/17 at 09:59 Celecoxib (Celebrex) 200 mg DAILY PO Last administered on 01/28/17 08:51; Admin Dose 200 MG; Start 01/27/17 at 09:00 Oxycodone HCl (Roxicodone) 5 mg Q4H PRN PO PAIN LEVEL 1-3; Start 01/26/17 at 14 :00 Oxycodone HCl (Roxicodone) 10 mg Q4H PRN PO PAIN LEVEL 4-7 Last administered on 01/28/17 08:57; Admin Dose 10 MG; Start 01/26/17 at 14:00 Hydromorphone HCl (Dilaudid) 1 mg Q3H PRN IV PAIN LEVEL 8-10; Start 01/26/17 at 14:00 Ondansetron HCl (Zofran Inj) 4 mg Q6H PRN IV NAUSEA AND/OR VOMITING Last administered on 01/27/17 08:43; Admin Dose 4 MG; Start 01/26/17 at 14:00 Bisacodyl (Dulcolax Supp) 10 mg Q12H PRN [place] CONSTIPATION; Start 01/26/17 at 10: 00 Magnesium Hydroxide (Milk Of Mag) 30 ml BID PRN PO CONSTIPATION; Start at 10:00 Sodium Biphosphate/ Sodium Phosphate (Fleet Enema) 133 ml DAILY PRN [place] CONSTIPATION; Start 01/26/17 at 10:00 Docusate Sodium (Colace) 100 mg BID PO Last administered on 01/28/17 08:51; Admin Dose 100 MG; Start 01/26/17 at 21:00 Diphenhydramine HCl (Benadryl) 25 mg Q6H PRN PO PRURITUS; Start 01/26/17 at 14: 00 Aspirin (Ecotrin) 325 mg BID PO Last administered on 01/28/17 08:51; Admin Dose 325 MG; Start 01/27/17 at 09:00 Pantoprazole (Protonix Tab) 40 mg BID@06,18 PO Last administered on 01/28/17 06 :15; Admin Dose 40 MG; Start 3/30/17 at 18:00 Tramadol HCl (Ultram) 50 mg Q4H PRN PO PAIN Last administered on 01/27/17 23: 12; Admin Dose 50 MG; Start 01/27/17 at 09:00 Acetaminophen (Tylenol Tab) 650 mg Q4H PRN PO PAIN AND OR ELEVATED TEMP Last administered on 01/27/17 17:01; Admin Dose 650 MG; Start 01/27/17 at 16:30 OMEGA MONTERROSO MD Jan 28, 2017 11:01
[2017-01-28 19:00] VITALS: BP 119/59; RESP 18
[2017-01-29] MEDS: LACTATED RINGER'S 1,000 ML IV SCH (01:59)
[2017-01-29] MEDS: oxyCODONE 5 MG TAB PO PRN (03:36)
[2017-01-29 05:15] LABS: HEMATOCRIT 28.2 % (37.0-47.0); HEMOGLOBIN 9.2 g/dl (12.0-16.0)
[2017-01-29 05:35] LABS: POTASSIUM 4.1 mmol/L (3.5-5.1)
[2017-01-29 05:38] LABS: CREATININE 0.61 mg/dl (0.44-1.00)
[2017-01-29 05:39] LABS: CALCIUM 8.3 mg/dl (8.4-10.2)
[2017-01-29] MEDS: PANTOPRAZOLE (EC) 40 MG TAB PO SCH (06:20)
[2017-01-29 07:48] VITALS: BP 128/65; RESP 16
[2017-01-29] MEDS: DOCUSATE SODIUM 100 MG CAP PO SCH (08:19)
[2017-01-29] MEDS: CELECOXIB 200 MG CAP PO SCH (08:19)
[2017-01-29] MEDS: FENOFIBRATE 145 MG TAB PO SCH (08:19)
[2017-01-29] MEDS: ESCITALOPRAM 10 MG TAB PO SCH (08:19)
[2017-01-29] MEDS: AMLODIPINE 10 MG TAB PO SCH (08:19)
[2017-01-29] MEDS: ASPIRIN (EC) 325 MG TAB PO SCH (08:19)
[2017-01-29] MEDS: LEVOTHYROXINE 137 MCG TAB PO SCH (08:19)
--- NOTE | 2017-01-29 10:15 | PN ---
Date/Time of Note Date/Time of Note DATE: 01/29/17 TIME: 10:14 Assessment/Plan Lines/Catheters IV Catheter Type (from Nrsg): Peripheral IV Clarke in Place (from Nrsg): No Assessment/Plan Assessment/Plan Stable POD #3, s/p right anterior OFELIA -pain meds as needed -dressing changed -OOB with PT -ASA/SCDs for DVT prophylaxis -d/c home today -follow up in the office in 1 week Subjective 24 Hr Interval Summary No acute overnight events. Pain better controlled today. VSS, afebrile. Would like to go home today. Exam/Review of Systems Vital Signs Vitals Vital Signs Date Time Temp Pulse Resp B/P Pulse Ox O2 Delivery O2 Flow Rate FiO2 01/29/17 07:48 97.8 75 16 128/65 100 01/27/17 05:28 Nasal Cannula 2.0 Intake and Output 01/28/17 01/28/17 01/29/17 15:00 23:00 07:00 Intake Total 720 ml 250 ml Output Total 2000 ml 900 ml Balance -1280 ml -650 ml Exam Free Text/Dictation Dressing dry Incision clean, dry, and intact without redness or drainage 5/5 Quadriceps, Tibialis Anterior, EHL, Gastroc, Soleus, Peroneals Normal sensation Palpable DT/PT, CR <2 sec No distal edema Results Result Diagram: 01/29/17 0437 01/29/17 0437 JAMAL LOPEZ PA-C Jan 29, 2017 10:15
--- NOTE | 2017-01-29 11:22 | CONS ---
Date/Time of Note Date/Time of Note DATE: 01/29/17 TIME: 11:20 Assessment/Plan Assessment/Plan Additional Assessment/Plan 1. Stable postoperative right total hip replacement. 2. History of hypertension, BP controlled 3. Hyperlipidemia, statin will be continued. 4. Can dc if ok with ortho and pt Consultation Date/Type/Reason Admit Date/Time Jan 26, 2017 at 06:04 Detailed Summary Respiratory: No cough, No shortness of breath Cardiovascular: No chest pain, No orthopenea Gastrointestinal: no complaints, No pain Genitourinary: no complaints Musculoskeletal: bone/joint pain (mild right hip pain) Exam/Review of Systems Vital Signs Vitals Vital Signs Date Time Temp Pulse Resp B/P Pulse Ox O2 Delivery O2 Flow Rate FiO2 01/29/17 07:48 97.8 75 16 128/65 100 01/27/17 05:28 Nasal Cannula 2.0 Intake and Output 01/28/17 01/28/17 01/29/17 15:00 23:00 07:00 Intake Total 720 ml 250 ml Output Total 2000 ml 900 ml Balance -1280 ml -650 ml Exam Neck: No jvd Respiratory: clear to auscultation Cardiovascular: regular rate and rhythm Gastrointestinal: soft Extremities: No edema (and no calf tend) Results Result Diagram: 01/29/17 0437 01/29/17 0437 Results 24 hrs Laboratory Tests Test 01/29/17 04:37 Hemoglobin 9.2 L Hematocrit 28.2 L Sodium Level 134 L Potassium Level 4.1 Chloride Level 101 Carbon Dioxide Level 32 H Anion Gap 5 L Blood Urea Nitrogen 17 Creatinine 0.61 Glucose Level 115 Calcium Level 8.3 L Medications Medications Current Medications Miscellaneous Information 1 ea NOTE XX ; Start 01/26/17 at 07:00; Stop 01/30/17 at 06:59 Amlodipine Besylate (Norvasc) 10 mg DAILY PO Last administered on 01/29/17 08: 19; Admin Dose 10 MG; Start 01/27/17 at 09:00 Escitalopram Oxalate (Lexapro) 20 mg DAILY PO Last administered on 01/29/17 08: 19; Admin Dose 20 MG; Start 01/27/17 at 09:00 Fenofibrate 145 mg 145 mg DAILY PO Last administered on 01/29/17 08:19; Admin Dose 145 MG; Start 01/27/17 at 09:00 Lactated Ringer's (Lr) 1,000 ml @ 125 mls/hr Q8H IV Last administered on 08:43; Admin Dose 125 MLS/HR; Start 01/26/17 at 09:59 Celecoxib (Celebrex) 200 mg DAILY PO Last administered on 01/29/17 08:19; Admin Dose 200 MG; Start 01/27/17 at 09:00 Oxycodone HCl (Roxicodone) 5 mg Q4H PRN PO PAIN LEVEL 1-3; Start 01/26/17 at 14 :00 Oxycodone HCl (Roxicodone) 10 mg Q4H PRN PO PAIN LEVEL 4-7 Last administered on 01/29/17 03:36; Admin Dose 10 MG; Start 01/26/17 at 14:00 Hydromorphone HCl (Dilaudid) 1 mg Q3H PRN IV PAIN LEVEL 8-10; Start 01/26/17 at 14:00 Ondansetron HCl (Zofran Inj) 4 mg Q6H PRN IV NAUSEA AND/OR VOMITING Last administered on 01/27/17 08:43; Admin Dose 4 MG; Start 01/26/17 at 14:00 Bisacodyl (Dulcolax Supp) 10 mg Q12H PRN [place] CONSTIPATION; Start 01/26/17 at 10: 00 Magnesium Hydroxide (Milk Of Mag) 30 ml BID PRN PO CONSTIPATION; Start at 10:00 Sodium Biphosphate/ Sodium Phosphate (Fleet Enema) 133 ml DAILY PRN [place] CONSTIPATION; Start 01/26/17 at 10:00 Docusate Sodium (Colace) 100 mg BID PO Last administered on 01/29/17 08:19; Admin Dose 100 MG; Start 01/26/17 at 21:00 Diphenhydramine HCl (Benadryl) 25 mg Q6H PRN PO PRURITUS; Start 01/26/17 at 14: 00 Aspirin (Ecotrin) 325 mg BID PO Last administered on 01/29/17 08:19; Admin Dose 325 MG; Start 01/27/17 at 09:00 Pantoprazole (Protonix Tab) 40 mg BID@06,18 PO Last administered on 01/29/17 06 :20; Admin Dose 40 MG; Start 01/26/17 at 18:00 Tramadol HCl (Ultram) 50 mg Q4H PRN PO PAIN Last administered on 01/27/17 23: 12; Admin Dose 50 MG; Start 01/27/17 at 09:00 Acetaminophen (Tylenol Tab) 650 mg Q4H PRN PO PAIN AND OR ELEVATED TEMP Last administered on 01/27/17 17:01; Admin Dose 650 MG; Start 01/27/17 at 16:30 OMEGA MONTERROSO MD Jan 29, 2017 11:22
--- NOTE | 2017-01-29 19:51 | DS ---
DATE OF ADMISSION: 01/26/2017 DATE OF DISCHARGE: 01/29/2017 CONDITION ON DISCHARGE: Stable. ADMITTING DIAGNOSIS: Right hip osteoarthritis. DISCHARGE DIAGNOSIS: Status post right anterior total hip arthroplasty. PROCEDURE PERFORMED: Right anterior total hip arthroplasty. HOSPITAL COURSE: This is a 66-year-old female who was in the clinic initially complaining of right hip pain. Radiographs were obtained and demonstrated advanced osteoarthritis of the right hip and it was thought she would benefit from a right anterior total hip arthroplasty. On 01/26/2017 the patient was admitted and taken to the operating room where she underwent a right anterior total hip arthroplasty. There were no intraoperative complications. The patient tolerated the procedure well. She was taken to the recovery room in stable condition. Pain was controlled with oral pain medication. She was started on aspirin and SCDs for DVT prophylaxis. She remained hemodynamically stable and neurovascularly intact throughout her hospital stay. She began physical therapy on postoperative day 1 and was deemed stable for discharge on postoperative day #3. Prior to discharge, the incision was inspected and noted to be clean, dry and intact. Dressing changes were done prior to patient going home. LABORATORY ANALYSIS: Hemoglobin 9.2, hematocrit 28.2. Chemistry panel demonstrated sodium 134, potassium at 4.1, anion gap 5, BUN 17, creatinine 0.61 , glucose 115. DISCHARGE MEDICATIONS: 1. [place] 5/325 mg. 2. Tramadol 50 mg. 3. Protonix 40 mg. 4. Aspirin 325 mg. 5. Additionally, the patient is to resume all of her normal home medications. DISCHARGE INSTRUCTIONS: The patient will be discharged home in stable condition. She to resume a normal diet. Activity includes weightbearing as tolerated on right lower extremity. She will begin physical therapy with home health. She will be discharged home on the medications noted above and is to resume all normal home medication. The patient is to call the office or go to the emergency room for any concerns including increased redness, swelling, drainage or fever or any concern regarding the operation or site of incision. FOLLOWUP: The patient is to follow up in the office on 02/06/2017. Dictated By: JAMAL DAVE for LORI CA/KAMILA Conf#: [id number] DID#: [id number] [facility]ALTH CENTERConor
== END 2017-01-29 14:04 | disposition home health service (06) | DRG 470 ==
LOC: REC 06:04 → MS1 11:08
PROVIDERS: ADMIT Orthopaedic Surgery; ATTEND Orthopaedic Surgery
PROC: 0SR904A Replacement of Right Hip Joint with Ceramic on Polyethylene Synthetic Substitute, Uncemented, Open Approach (ICD-10-PCS; principal; 2017-01-26 07:00)
DX: M16.11 Unilateral primary osteoarthritis, right hip (principal); E55.9 Vitamin D deficiency, unspecified; I10 Essential (primary) hypertension; E78.5 Hyperlipidemia, unspecified; E89.0 Postprocedural hypothyroidism; R42 Dizziness and giddiness; E66.9 Obesity, unspecified; K21.9 Gastro-esophageal reflux disease without esophagitis; Z68.35 Body mass index [BMI] 35.0-35.9, adult
CPT/HCPCS: 72170; 73530; 80048; 81001; 81003; 84132; 85014; 85018; 86850; 86900; 86901; 86920; 87081; 87086; 88304; 88311; 97110; 97116; 97162; 97167; 97530; Z7610; C1776; C9290; J0131; J0171; J0690; J0697; J0735; J1100; J1170; J1885; J2250; J2274; J2405; J2765; J3010; J3370; J7120

== ENCOUNTER → 2017-02-06 | Outpatient (CLI) | payer MEDICARE, BC ==
[~2017-02-06] MED LIST changes: +AMLO-147 PO; +ASPI325T32 PO; +BETA1TAB12 PO; +CALC-68 PO; -CEFAZOLIN 2GM/50 ML (PMX) 50 ML X1 BEFORE INCISION IVPB ONE; -CELECOXIB 400 MG PO X1 DOSE PO ONE; +CHOL100062 PO; +ESCI20TA38 PO; +FENO200 PO; +HYDR-906 PO; -LACTATED RINGER'S 1,000 ML IV SCH; +LEVO137T3 PO; +PANT40TA4 PO; +PRAV20TA63 PO; -PREGABALIN 300 MG PO X1 PO ONE; +TRAM50TA2 PO; -TRANEXAMIC ACID 820 MG in SOD CHLORIDE 0.9% 91.8 ML IV ONE; +UBID50TA PO; -oxyCODONE (CR) 10 MG TAB [oxyCONTIN] X1 DOSE PO ONE; -traMADOL 50 MG TAB X 1 DOSE PO ONE
--- NOTE | 2017-02-06 11:53 | RADRPT ---
PROCEDURE: XR Right hip and pelvis. CLINICAL INDICATION: Right hip pain. Pelvic pain. Postop. TECHNIQUE: Two views. Frontal pelvis and frontal right hip. COMPARISON: 01/26/2017. FINDINGS: There is no fracture or dislocation. Right lateral skin era are noted. The surgical drain has been removed. There is a right hip total arthroplasty which appears satisfactory. There are mild degenerative changes of the left hip with osteophytes noted. There are also degenera tive changes of the lower lumbar spine. There is no lytic or blastic lesion. The sacroiliac joints are unremarkable. IMPRESSION: 1. Satisfactory postoperative appearance of the right hip. 2. Mild degenerative changes of the left hip. RPTAT: QQ .Saeid Heredia MD, MD Date Time Electronically viewed and signed by .Saeid Heredia MD, on 02/06/2017 11:52 .R/
--- NOTE | 2017-02-06 21:04 | HKNOTE ---
DATE OF SERVICE: 02/06/2017 INTERVAL HISTORY: The patient presents today for her first postoperative evaluation. She is 10 days status post right anterior total hip arthroplasty. She is doing well overall. She is ambulating with a front-wheel walker, but feels she can transition to a cane. She is very happy with the results thus far. She is happy with the care she received the hospital as well as with home health. She is doing physical therapy at home. She is also taking the aspirin twice daily for DVT prophylaxis. She denies any fevers or chills. She presents today for her first postoperative evaluation. PHYSICAL EXAMINATION: Today, she is alert and oriented x4 in no acute distress. She is ambulating with a front-wheel walker. Within normal the incision demonstrates to be clean, dry, and intact. There is some scabbing the most proximal edge of the scar, as well as some superficial skin breakdown secondary to her folds of her abdomen. There is no pus or drainage noted. There is no erythema or warmth noted. Compartments are otherwise soft. Neurovascular status intact distally. IMAGING: X-rays of the right hip are obtained today and reviewed by me. They demonstrate good anatomic alignment. No fracture or dislocation identified. ASSESSMENT: Ten days status post right anterior total hip arthroplasty, doing well. PLAN: [place] and sutures were removed today and Steri-Strips were applied. The patient is to continue home health physical therapy and begin ambulating using the 10% rule. She can graduate to a cane when physical therapy recommends. She is also to continue taking aspirin twice daily for 6 weeks for DVT prophylaxis. We will see her back in 4 weeks for repeat evaluation. She is to call the office, in the meantime, if she has any concerns. Dictated By: JAMAL DAVE for LORI CA/KAMILA Conf#: [id number] DID#: [id number] MTDD
== END | disposition home or self-care (01) ==
LOC: HKI 09:48
PROVIDERS: ATTEND Orthopaedic Surgery
DX: Z47.1 Aftercare following joint replacement surgery (principal); Z96.641 Presence of right artificial hip joint
CPT/HCPCS: 73502

== ENCOUNTER → 2017-03-08 | Outpatient (CLI) | payer MEDICARE, BC ==
--- NOTE | 2017-03-08 13:31 | RADRPT ---
PROCEDURE: XR Pelvis and right Hip. CLINICAL INDICATION: Postop. Pain. TECHNIQUE: 2 views of the pelvis and right hip are available for review. COMPARISON: No prior studies are available for comparison. FINDINGS: Patient is status post total right hip arthroplasty. Hardware is intact, and alignment is anatomic. There is no evidence of acute fracture or dislocation. Joint spaces are well maintained. The lef t femoral acetabular joint is within normal limits. The sacroiliac joints are unremarkable. The so ft tissues are within normal limits. IMPRESSION: 1. Total right hip arthroplasty in anatomic alignment. RPTAT: KK .Dagoberto Dacosta MD, MD Date Time Electronically viewed and signed by .Dagoberto Dacosta MD, on 03/08/2017 13:31 .B/
== END | disposition home or self-care (01) ==
LOC: HKI 09:48
PROVIDERS: ATTEND Orthopaedic Surgery
DX: Z09 Encounter for follow-up examination after completed treatment for conditions other than malignant neoplasm (principal); Z96.641 Presence of right artificial hip joint
CPT/HCPCS: 73502; G0463

== ENCOUNTER → 2017-04-19 | Outpatient (CLI) | payer MEDICARE, BC ==
--- NOTE | 2017-04-19 13:51 | RADRPT ---
PROCEDURE: XR pelvis/right hip. CLINICAL INDICATION: Hip pain TECHNIQUE: AP pelvis/AP and lateral right hip views performed. COMPARISON: 03/08/2017 FINDINGS: There is a right total hip replacement. There is no evidence of loosening of the prosthesis. No hard howell failure is identified. There is mild to moderate left hip osteoarthrosis. This is associated with joint space narrowing, almanza bchondral sclerosis and osteophytosis. There is normal osseous mineralization. No fractures or oss eous lesions are identified. The soft tissues are unremarkable. IMPRESSION: Right total hip replacement. Mild to moderate left hip osteoarthrosis. RPTAT: HGDB .Moe Hitchcock MD, MD Date Time Electronically viewed and signed by .Moe Hitchcock MD, on 04/19/2017 13:51 .B/
== END | disposition home or self-care (01) ==
LOC: HKI 09:54
PROVIDERS: ATTEND Orthopaedic Surgery
DX: M25.552 Pain in left hip (principal); M16.12 Unilateral primary osteoarthritis, left hip; Z96.641 Presence of right artificial hip joint
CPT/HCPCS: 73502

== ENCOUNTER → 2018-05-28 | Outpatient (CLI) | END | disposition home or self-care (01) ==

== ENCOUNTER → 2018-06-04 | Outpatient (CLI) | END | disposition home or self-care (01) ==

== ENCOUNTER → 2018-06-11 | Outpatient (CLI) | END | disposition home or self-care (01) ==